=== PATIENT | male | born 1990 | race African-American/Black ===

== ENCOUNTER 2016-09-18 12:52 | Emergency (ER) | payer MEDICAID, OTHER ==
[~2016-09-18] VITALS: Ht 172.7 cm; Wt 78.9 kg
[~2016-09-18 12:52] MED LIST: CELE20TA PO; No home meds; TRAZ50TA4 PO
[2016-09-18] MEDS ORDERED: ONDANSETRON 4 MG ORAL DISINTEGRATING TAB (S0181) PO ONE (13:45)
[2016-09-18] MEDS ORDERED: ALBUTEROL 90 MCG/ACT 8GM HFA INHALER INH ONE (13:45)
[2016-09-18] MEDS ORDERED: ONDA4TAB6 PO (14:33)
[2016-09-18] MEDS ORDERED: AUGM875T27 PO (14:33)
[2016-09-18] MEDS ORDERED: IBUP80TA PO (14:33)
[2016-09-18 14:40] VITALS: BP 137/82
== END 2016-09-18 14:42 | disposition home or self-care (01) ==
LOC: M ED 13:24
DX: B34.9 Viral infection, unspecified (principal); K02.9 Dental caries, unspecified; J45.909 Unspecified asthma, uncomplicated; Z79.899 Other long term (current) drug therapy; F17.210 Nicotine dependence, cigarettes, uncomplicated

== ENCOUNTER 2016-09-26 13:12 | Emergency (ER) | payer OTHER ==
[~2016-09-26] VITALS: Ht 170.2 cm; Wt 78.5 kg
[2016-09-26 13:12] VITALS: BP 143/87
[~2016-09-26 13:12] MED LIST changes: +AUGM875T27 PO; +IBUP80TA PO; +ONDA4TAB6 PO
[2016-09-26] MEDS ORDERED: TESS100C PO (14:18)
[2016-09-26] MEDS ORDERED: REGL10TA6 PO (14:18)
== END 2016-09-26 14:23 | disposition home or self-care (01) ==
LOC: M ED 13:43
DX: J06.9 Acute upper respiratory infection, unspecified (principal)

== ENCOUNTER 2016-12-13 08:50 | Emergency (ER) | payer OTHER ==
[~2016-12-13] VITALS: Ht 175.3 cm; Wt 77.6 kg
[~2016-12-13 08:50] MED LIST changes: +REGL10TA6 PO; +TESS100C PO
[2016-12-13] MEDS ORDERED: ZOFR4TAB3 PO (09:42)
[2016-12-13] MEDS ORDERED: IBUP80TA PO (09:42)
[2016-12-13] MEDS ORDERED: NORCO, ANEXSIA 5/325MG TABLET (HYDROcodone/ACETAMINOPHEN) PO ONE (09:45)
[2016-12-13] MEDS ORDERED: ONDANSETRON 4 MG ORAL DISINTEGRATING TAB (S0181) PO ONE (09:45)
[2016-12-13 09:58] VITALS: BP 148/89
== END 2016-12-13 09:59 | disposition home or self-care (01) ==
LOC: M ED 09:14
DX: K21.9 Gastro-esophageal reflux disease without esophagitis (principal); R11.2 Nausea with vomiting, unspecified; F17.200 Nicotine dependence, unspecified, uncomplicated

== ENCOUNTER 2017-05-19 15:17 | Emergency (ER) | payer OTHER, SELFPAY ==
[~2017-05-19] VITALS: Ht 170.2 cm; Wt 81.4 kg
[~2017-05-19 15:17] MED LIST changes: -AUGM875T27 PO; +AUGM875T28 PO; +TRAZ50TA11 PO; -TRAZ50TA4 PO; +ZOFR4TAB3 PO
[2017-05-19] MEDS ORDERED: AUGM875T28 PO (17:12)
[2017-05-19] MEDS ORDERED: AUGMENTIN 875 MG TAB PO ONE (17:15)
[2017-05-19 17:40] VITALS: BP 137/72
== END 2017-05-19 17:45 | disposition home or self-care (01) ==
LOC: M ED 15:17
DX: J01.90 Acute sinusitis, unspecified (principal); F17.210 Nicotine dependence, cigarettes, uncomplicated

== ENCOUNTER → 2018-01-15 | Outpatient (REF) | payer OTHER ==
[2018-01-15 14:24] LABS: HEMATOCRIT 40.5 % (42.0-52.0); HEMOGLOBIN 13.7 g/dl (13.5-17.5); MEAN CORPUSCULAR HEMOGLOBIN 31.7 pg (27.0-33.0); MEAN CORPUSCULAR HGB CONC 33.8 g/dl (32.0-36.5); MEAN CORPUSCULAR VOLUME 93.8 fl (80.0-96.0); PLATELET COUNT, AUTOMATED 210 10^3/uL (150-450); RED BLOOD COUNT 4.32 10^6/uL (4.30-6.10); RED CELL DISTRIBUTION WIDTH 11.4 % (11.5-14.5); WHITE BLOOD COUNT 7.2 10^3/uL (4.0-10.0)
== END ==
LOC: M SFHCPLAZ 12:35
DX: K92.0 Hematemesis (principal)

== ENCOUNTER 2018-02-12 12:55 | Emergency (ER) | payer OTHER | END 2018-02-12 15:31 | disposition home or self-care (01) | LOC: M ED 12:55 | DX: G89.29 Other chronic pain (principal); M54.2 Cervicalgia; Z79.899 Other long term (current) drug therapy | CPT/HCPCS: 99282 ==

== ENCOUNTER → 2018-03-01 | Outpatient (REF) | payer OTHER | LOC: M SFHCPLAZ 10:27 | DX: R42 Dizziness and giddiness (principal) ==

== ENCOUNTER 2018-03-26 09:03 | Outpatient (RCR) | payer OTHER | END 2018-04-04 | LOC: M PT 09:03 | DX: M54.2 Cervicalgia (principal) | CPT/HCPCS: 97010 ==

== ENCOUNTER → 2018-04-02 | Outpatient (CLI) | payer MEDICAID, SELFPAY | LOC: M OUTALCOH 11:11 | DX: Z13.89 Encounter for screening for other disorder (principal) ==

== ENCOUNTER 2018-04-05 09:25 | Outpatient (RCR) | payer OTHER | END 2018-05-05 | LOC: M PT 04-07 09:00 → M OT 04-21 08:03 → M PT 09:25 | DX: Z51.89 Encounter for other specified aftercare (principal); M54.2 Cervicalgia | CPT/HCPCS: 97010 ==

== ENCOUNTER 2018-04-09 13:13 | Outpatient (RCR) | payer MEDICAID | END 2018-05-05 | LOC: M OUTALCOH 13:13 | DX: Z03.89 Encounter for observation for other suspected diseases and conditions ruled out (principal) ==

== ENCOUNTER → 2018-05-03 | Outpatient (REF) | payer OTHER ==
[2018-05-03 15:24] LABS: APPEARANCE, URINE CLOUDY (CLEAR); BACTERIA, URINE AUTO NEGATIVE (NEGATIVE); BILIRUBIN, URINE AUTO NEGATIVE (NEGATIVE); BLOOD, URINE BLOOD 1+ (NEGATIVE); COLOR, URINE YELLOW (YELLOW); GLUCOSE, URINE (UA) AUTO NEGATIVE (NEGATIVE); KETONE, URINE AUTO NEGATIVE (NEGATIVE); LEUKOCYTE ESTERASE, URINE AUTO 3+ (NEGATIVE); MUCUS, URINE SMALL (NEGATIVE); NITRITE, URINE AUTO NEGATIVE (NEGATIVE); PROTEIN, URINE AUTO NEGATIVE (NEGATIVE); RBC, URINE AUTO 61 /HPF (0-3); SPECIFIC GRAVITY URINE AUTO 1.027 (1.002-1.035); SQUAMOUS EPITHELIAL CELL UR AU 0 /HPF (0-6); WBC, URINE AUTO TNTC /HPF (0-3)
[2018-05-03 16:41] LABS: CHLAMYDIA DNA AMPLIFICATION POSITIVE (NEGATIVE); GC DNA AMPLIFICATION POSITIVE (NEGATIVE)
== END ==
LOC: M LAB REF 15:01
DX: N39.0 Urinary tract infection, site not specified (principal); Z20.2 Contact with and (suspected) exposure to infections with a predominantly sexual mode of transmission

== ENCOUNTER 2020-02-16 18:51 | Emergency (ER) | payer OTHER ==
[~2020-02-16 18:51] MED LIST changes: +CYCL-707 PO; +OMEP40CA97 PO; +TRAM50TA2 PO; +TRAZ-252 PO; -TRAZ50TA11 PO; +ZOFR4TAB14 PO; +ZOFR4TAB16 PO; -ZOFR4TAB3 PO
== END 2020-02-16 20:00 | disposition home or self-care (01) ==
LOC: M ED 18:51
DX: J45.909 Unspecified asthma, uncomplicated (principal); Z20.828 Contact with and (suspected) exposure to other viral communicable diseases

== ENCOUNTER 2020-05-16 07:47 | Emergency (ER) | payer OTHER ==
[~2020-05-16] VITALS: Ht 170.2 cm; Wt 82.0 kg
[2020-05-16] MEDS ORDERED: LIDOCAINE 1% MDV 20ML VIAL SC ONE (08:30)
[2020-05-16] MEDS ORDERED: KEFL500C17 PO (09:14)
[2020-05-16] MEDS ORDERED: KETO10TAB PO (09:14)
[2020-05-16] MEDS ORDERED: KETOROLAC 30 MG/ML 1ML VIAL IM ONE (09:15)
[2020-05-16] MEDS ORDERED: CEPHALEXIN 500 MG CAP PO ONE (09:15)
[2020-05-16 09:51] VITALS: BP 152/105
== END 2020-05-16 09:53 | disposition home or self-care (01) ==
LOC: M ED 07:47
DX: S61.112A Laceration without foreign body of left thumb with damage to nail, initial encounter (principal); W26.0XXA Contact with knife, initial encounter; Y92.511 Restaurant or cafe as the place of occurrence of the external cause; Y93.G1 Activity, food preparation and clean up; Y99.0 Civilian activity done for income or pay
CPT/HCPCS: 12001; 96372; 99284; J1885

== ENCOUNTER 2024-11-13 14:05 | Emergency (ER) | payer MEDICAID, OTHER ==
[~2024-11-13] VITALS: Ht 175.3 cm; Wt 93.2 kg
[~2024-11-13 14:05] MED LIST changes: +KEFL500C17 PO; +KETO10TAB PO; +OMEP40CA4 PO; -OMEP40CA97 PO; +ONDA-282 PO; -ONDA4TAB6 PO
[2024-11-13] MEDS ORDERED: LORA-1041 PO (14:19)
[2024-11-13] MEDS: NS (Normal Saline) 0.9% 1,000 ML IV ONE ×2 (15:02→16:06)
[2024-11-13 15:08] LABS: BASO % 0.3 % (0.0-1.0); EOS # 0.3 10^3/uL (0.0-0.5); EOS % 2.6 % (0.0-3.0); HEMATOCRIT 45.3 % (42.0-52.0); HEMOGLOBIN 14.5 g/dl (13.5-17.5); LYMPH # 2.3 10^3/uL (1.5-5.0); LYMPH % 21.6 % (24.0-44.0); MEAN CORPUSCULAR HEMOGLOBIN 30.4 pg (27.0-33.0); MONO # 0.7 10^3/uL (0.0-0.8); MONO % 6.7 % (2.0-8.0); NEUTROPHILS # 7.2 10^3/uL (1.5-8.5); NEUTROPHILS % 68.4 % (36.0-66.0); PLATELET COUNT, AUTOMATED 252 10^3/uL (150-450); RED BLOOD COUNT 4.77 10^6/uL (4.30-6.10); WHITE BLOOD COUNT 10.5 10^3/uL (4.0-10.0)
[2024-11-13 15:34] LABS: ALBUMIN 4.4 G/DL (3.2-5.2); BILIRUBIN,TOTAL 1.5 MG/DL (0.3-1.2); CALCIUM LEVEL 9.6 MG/DL (8.5-10.1); CREATININE FOR GFR 1.96 MG/DL (0.70-1.30); GLOMERULAR FILTRATION RATE 45.2 (>60); POTASSIUM SERUM 4.4 MMOL/L (3.5-5.1); TOTAL PROTEIN 8.2 G/DL (5.7-8.2)
[2024-11-13] MEDS ORDERED: ISOVUE-370 76% 100ML VIAL As Ordered ONE (15:43)
[2024-11-13] MEDS: ONDANSETRON 4MG 2ML VIAL IV ONE (15:53)
[2024-11-13] MEDS ORDERED: ALBU8.5H INH (18:10)
[2024-11-13] MEDS ORDERED: ALBU10.7 INH (18:10)
[2024-11-13] MEDS ORDERED: HOME MED LIST COMPLETE! XX SCH (18:10)
[2024-11-13 18:20] LABS: AMPHETAMINES LEVEL URINE NEGATIVE (NEGATIVE); BARBITURATES URINE NEGATIVE (NEGATIVE); BENZODIAZEPINES URINE NEGATIVE (NEGATIVE); CANNABINOIDS URINE NEGATIVE (NEGATIVE); METHADONE URINE NEGATIVE (NEGATIVE); OPIATES URINE NEGATIVE (NEGATIVE); PHENCYCLIDINE URINE NEGATIVE (NEGATIVE)
[2024-11-13 18:34] LABS: COCAINE METABOLITE URINE POSITIVE (NEGATIVE)
[2024-11-13] MEDS: IPRATROPIUM 0.5MG/ALBUTEROL 2.5MG INH SOL UD 3ML NEB ONE ×2 (20:15→22:14)
[2024-11-13] MEDS: LR 1,000 ML IV SCH (22:35)
[2024-11-13 23:00] VITALS: BP 205/88; TEMP 98.6; O2SAT 96
[2024-11-14] MEDS ORDERED: IPRATROPIUM 0.5MG/ALBUTEROL 2.5MG INH SOL UD 3ML NEB SCH
== END 2024-11-13 23:35 | disposition short-term general hospital (02) ==
LOC: M ED 14:05 → EDBD 14:05 → M ED 23:35
DX: R55 Syncope and collapse (principal); F14.10 Cocaine abuse, uncomplicated; R94.31 Abnormal electrocardiogram [ECG] [EKG]; W19.XXXA Unspecified fall, initial encounter; R01.1 Cardiac murmur, unspecified
CPT/HCPCS: 70450; 71045; 71275; 80053; 80307; 84484; 85025; 93005; 94640; 96361; 96374; 99285; J2405; Q9967